=== PATIENT | female | born 1970 | race Caucasian/White ===

== ENCOUNTER 2021-04-23 03:14 | Emergency (ER) | payer OTHER ==
[2021-04-23] MEDS ORDERED: IBUPROFEN800 MG PO (04:15)
[2021-04-23] MEDS ORDERED: SUDAFED30 MG PO (04:15)
[2021-04-23] MEDS ORDERED: AUGMENTIN 875-1 EACH PO (04:15)
[2021-04-23] MEDS ORDERED: NORCO 5-325 TA1 EACH PO (04:15)
[2021-04-23] MEDS ORDERED: OFLOXACIN5 M1 EARLF (04:15)
[2021-04-23 05:07] LABS: CORONAVIRUS 2019 SARS-COV-2 NEGATIVE (NEGATIVE); INFLUENZA A NAA NEGATIVE (NEGATIVE)
== END 2021-04-23 04:53 | disposition home or self-care (01) ==
LOC: FER 03:14
PROVIDERS: Emergency Medicine Emergency Medical Services
DX: H66.002 Acute suppurative otitis media without spontaneous rupture of ear drum, left ear (principal); I10 Essential (primary) hypertension; Z20.822 Contact with and (suspected) exposure to COVID-19; Z79.899 Other long term (current) drug therapy
CPT/HCPCS: 96372; 99282; J0696; J1885; J7512; U0002